=== PATIENT | female | born 1940 | race Caucasian/White ===

== ENCOUNTER 2024-10-29 17:45 | Day surgery (SDC) | payer MEDICARE, OTHER, SELFPAY ==
[2024-10-29] VITALS (9 sets, daily range): BP systolic 117–155; BP diastolic 34–88; PULSE 70–115; RESP 16–18; TEMP 36.3–37.9; O2SAT 92–100; BMI 30.5
--- OUTSIDE RECORDS SUMMARY | 2024-10-29 17:47 | XMS_ITS | Clinical Summary ---
Author Organization [facility] Address [address] [place] [id number] Care Team Providers Care Vehicle Body Builder Name Role Phone CindyorenChrista Jen PETERSON Primary Care Provider [phone]- [phone] Allergies Active Allergy Reactions Criticality Noted Date Comments Theobroma Oil Headache 03/06/2015 Erythromycin Rash 03/06/2015 Vitc-Dietary Combo. No.18 Headache 03/06/2015 Zinc Nausea Only 05/23/2024 Medications cholecalciferol (VITAMIN D) 1,000 unit capsule Take 2,000 units by mouth once daily. 0 10/12/2020 Active vit C/E/Zn/coppr/james tein/zeaxan (PRESERVISION AREDS-2 ORAL) Take by mouth. 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 01/08/2017 10/12/2020 Immunizations Immunization Administration Dates Next Due COVID-19 VACCINE SPIKEVAX (M ODERNA 50MCG/0.5ML) 12YO+ PFS 05/23/2024 COVID-19 vaccine (SyCara LocalBio NTech 30mcg/0.3mL) 12YO+ BIVALENT PF, MDV 03/24/2023 COVID-19 vaccine ([employer]-Bio NTech 30mcg/0.3mL) PF, MDV 10/03/2020,09/12/2020 Influenza, High-dose Inactivated 05/22/2015 Influenza, High-dose Quadriv alent Inactivated 05/31/2020 Influenza, Inactivated IIV3 (Age 65+ Years) Preserv Free 05/23/2024,07/13/2019,04/26/2018 Pneumococcal Poly,23-Valent (Pneumovax) 04/26/20 18 Pneumococcal conj 13-Valent (Prevnar 13) 015 Tdap 11/02/2017 Family History Medical History Relation Name Comments Cancer-breast Maternal Grandmother Blood Disease Mother Hepatitis C Cancer-breast Mother Anesthesia Problem No Family History Relation Name Status Comments Maternal Grandmother Mother Social History Tobacco Use Types Packs/Day Years Used Date Smoking Tobacco: Former Cigarettes Smokeless Tobacco: Never Tobacco Cessation:Counseling Given: Yes Alcohol Use Standard Drinks/Week Comments No 1 (1 standard drink = 0.6 oz pur e alcohol) PHQ-2 Answer Date Recorded PHQ-2 TOTAL SCORE 0 05/23/2024 Social Connections Answer Date Recorded Do you often feel lonely or isolated from those around you? 0 05/23/2024 Financial Resource Strain Answer Date R ecorded Difficulty of Paying Living Expenses 3 05/23/2024 Difficulty of Paying Living Expenses Not on file 05/23/2024 Food Insecurity Answer Date Recorded Do you worry your food will run out before you are able to buy more? 1 05/23/2024 Transportation Needs Answer Date Record ed Does lack of transportation keep you from medica l appointments? 1 05/23/2024 Does lack of transportation keep you from work, meetings or getting things that you need? 1 05/23/2024 Housing Stability Answer Date Recorded What is your housing situation today? 1 05/23/2024 Utilities Answer Date Recorded Do you have trouble paying f or utilities (for example, heat, electricity, water, phone)? 1 05/23/2024 Comments No Sex and Gender Information Value Date Recorded Sex Assigned at Not on file Legal Sex Female 9:29 AM CDT Gender Identity Not on file Sexual Orientation Not on file Obstetrics History Last Filed Vital Signs Vital Sign Reading Time Taken Comments Blood Pressure 138/70 05/23/2024 3:01 PM CDT Pulse 67 05/23/2024 2:43 PM CDT Temperature 36.3 C (97.4 F) 05/31/2018 10:17 AM CDT Respiratory Rate - - Oxygen Saturation 98% 05/23/2024 2:43 PM CDT Inhaled Oxygen Concentration - - Weight 87.5 kg (193 lb) 05/23/2024 2:43 PM CDT Height 160 cm (5' 3) 05/23/2024 2:43 PM CDT Body Mass Index 34.19 05/23/2024 2:43 PM CDT Plan of Treatment Health Maintenance Due Date Last Done Comments Zoster (shingles) series for age 50+ (1 of 2) 1990 DEXA/DXA scan for age 65+ 2005 RSV vaccine for adults or (1 - 1-dose 75+ series) 2015 COVID-19 vaccine series ( season) 2024 05/23/2024, 03/24/2023, 10/03/2020, Additional history exists BMI (ht and wt on same day) for age 18+ 05/23/2025 05/23/2024, 03/24/2023, 10/12/2020, Additional history exists Depression screening for age 12+ 05/23/2025 05/23/2024, 03/24/2023, 10/15/2020, Additional history exists Medicare Wellness for age 65+ 05/24/2025, 03/24/2023, 10/12/2020, Additional history exists Tetanus booster 11/03/2027 11/02/2017 Tdap Completed 11/02/2017 Pneumococcal series for age 50+ Completed 8, 05/22/2015 Influenza Vaccine Completed 05/23/2024, , 04/26/2018, Additional history exists Insurance RUBI REDD [address] [place] [id number] MEDICARE PB ONLY STATE FARM MEDICARE PART A HB ONLY MEDICARE PART B HB ONLY Advance Directives Documents on File Type Date Recorded 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
--- NOTE | 2024-10-29 18:03 | ED_ITS ---
HPI - Abdominal Pain General Time Seen by Provider: 18:03 Date Seen: 10/29/24 Chief Complaint: Abdominal Pain Stated Complaint: Lower R abdominal pain Time Seen by Provider: 10/29/24 18:03 Source: patient, RN notes reviewed and old records reviewed Mode of arrival: ambulatory Limitations: no limitations History of Present Illness HPI narrative: Tiffany is a very pleasant 84-year-old female previously healthy not currently on any medications and a resident at [facility] ([facility]) who comes to the emergency room for evaluation of a possible appendicitis. Patient noted that she awoke at 0500 hours with right lower quadrant pain. The pain radiates superiorly into her right upper quadrant and has been associated with some vomiting. She has not had any fever chills dysuria or blood in her urine. She notes that she thought maybe she was constipated but has not been dealing with that lately nor has she had any diarrhea. She denies any falls or trauma. Movement does not seem to increase her pain. Related Data Previous Rx's ?Medication ?Instructions ?Recorded amoxicillin 875 mg-potassium 1 tab PO BID #14 tabs 10/29/24 clavulanate 125 mg tablet hydrocodone 5 mg-acetaminophen 325 1 tab PO Q6H PRN pain #20 tabs 10/29/24 mg tablet polyethylene glycol 3350 17 17 g PO DAILY #119 grams 10/29/24 gram/dose oral powder (Miralax) Allergies Allergy/AdvReac Type Severity Reaction Status Date / Time erythromycin base Allergy Intermediate Verified 10/29/24 17:56 chocolate AdvReac Intermediate Migraine Verified 10/30/24 00:44 Review of Systems Status of ROS Reports: 10 or more systems reviewed and unremarkable except as noted in History and below Const Denies: fever, chills or fatigue Eyes Denies: change in vision ENMT Denies: throat pain, neck pain or nasal congestion Cardio Denies: chest pain, swelling of feet/ankles, lightheadedness or shortness of breath with exertion Resp Denies: shortness of breath or cough GI Reports: abdominal pain, nausea and vomiting; Denies: diarrhea or constipation Denies: painful urination, urinary frequency, urinary urgency or blood in urine Musculo Denies: neck pain Integ/Breast Denies: rash Neuro Denies: headache or numbness in extremities Endo Denies: fatigue PFSH PFSH Surgical History (Updated 10/30/24 @ 09:42 by Katie Simpson MD) S/P laparoscopic appendectomy ?Z90.49 - Acquired absence of other specified parts of digestive tract (ICD- 10) History of bilateral hip replacements ?Z96.643 - Presence of artificial hip joint, bilateral (ICD-10) History of cataract surgery ?Z98.49 - Cataract extraction status, unspecified eye (ICD-10) Social History (Updated 10/29/24 @ 21:54 by Katie Simpson MD) Narrative: Patient lives by herself but is active and travels with her son who is recovery coach. Smoking Status: Never smoker Do you use any of these nicotine containing products: None How often do you have a drink containing alcohol: never How often do you have six or more drinks on one occasion: Never AUDIT-C Alcohol total score: 0 Non-prescribed substance use: denies use Exam Narrative: Exam Narrative: Alert and oriented. No acute distress. Dry lips. Face symmetrical. Mentation is normal. Heart with regular rate and rhythm and lungs are clear bilaterally. Abdomen shows right lower quadrant tenderness. Positive for pain with internal external rotation of the hip but negative straight leg raise. Seems to have more pain with palpation than rebound. Bowel sounds are decreased. No high pitched sounds however. No evidence of bulging in the groin to indicate hernia. Const: Vital Signs, click to edit/add: Vital Signs - 24 hr 10/30/24 03:00 10/30/24 04:00 10/30/24 05:00 Temperature 98.1 F 97.7 F 97.7 F Pulse Rate 87 85 86 Pulse Rate [Right Pulse Oximeter] Respiratory Rate 16 16 16 Blood Pressure 107/51 L 117/98 H 104/44 L Blood Pressure [Le ft Arm] Pulse Oximetry 93 94 93 Oxygen Delivery Me thod Nasal Cannula Room Air Room Air Oxygen Flow Rate 1 10/30/24 05:07 10/30/24 07:13 10/30/24 07:45 Temperature 98.1 F 98.1 F 99.2 F Pulse Rate 79 79 Pulse Rate [Right Pulse Oximeter] 82 Respiratory Rate 16 16 18 Blood Pressure 89/46 L 89/46 L Blood Pressure [Le ft Arm] 103/45 L Pulse Oximetry 93 93 90 Oxygen Delivery Me thod Room Air Room Air Room Air Oxygen Flow Rate 10/30/24 07:45 Temperature Pulse Rate Pulse Rate [Right Pulse Oximeter] Respiratory Rate 18 Blood Pressure Blood Pressure [Le ft Arm] Pulse Oximetry 90 Oxygen Delivery Me thod Room Air Oxygen Flow Rate Documenting provider has reviewed patient's vital signs: yes Course Course ED Course: Differential diagnosis includes but is not limited to constipation common appendicitis, diverticulitis, colitis, ureteral colic/kidney stone, UTI. Will place IV and draw labs to include CBC, comprehensive panel, CRP. Will obtain urinalysis. Will also get flat plate and upright of the belly to start with. Have also ordered Zofran Toradol and IV fluids. Reevaluation(s) Reevaluation #1: Abdominal flat plate and upright shows a large stool burden. However, Patient noted to have a significantly elevated white count [id number] and CRP is 3.0. Will proceed with abdominal CT to rule out evidence of appendicitis versus colitis or diverticulitis. Patient is feeling better after Toradol. She has also received fluids. Reevaluation #2: EKG and chest x-ray are ordered. Consultations Consultation #1: Specialty consult with our surgeon Dr. Yates. She was able to view the images and is now planning on appendectomy this evening. Vital Signs Vital signs: Initial Vital Signs Temperature 97.3 F L 10/29/24 17:47 Temperature Source Temporal Artery Scan 10/29/24 17:47 Pulse Rate 70 10/29/24 17:47 Respiratory Rate 18 10/29/24 17:47 Blood Pressure 155/77 H 10/29/24 17:47 Blood Pressure Mean 103 10/29/24 17:47 Blood Pressure Position Sitting 10/29/24 17:47 Pulse Oximetry 98 10/29/24 17:47 Oxygen Delivery Method Room Air 10/29/24 17:47 Vital Signs Temperature 97.3 F L 10/29/24 17:47 Pulse Rate 70 10/29/24 17:47 Respiratory Rate 18 10/29/24 17:47 Blood Pressure 155/77 H 10/29/24 17:47 Pulse Oximetry 98 10/29/24 17:47 Oxygen Delivery Method Room Air 10/29/24 17:47 Temperature 99.2 F 10/30/24 07:45 Pulse Rate 82 10/30/24 07:45 Respiratory Rate 18 10/30/24 07:45 Blood Pressure 103/45 L 10/30/24 07:45 Pulse Oximetry 90 10/30/24 07:45 Oxygen Delivery Method Room Air 10/30/24 07:45 Oxygen Flow Rate 1 10/30/24 03:00 Medications Administered Medications: Discontinued Medications Generic Name Dose Route Start Last Admin Trade Name Freq PRN Reason Stop Dose Admin Acetaminophen 650 mg 10/29/24 21:57 10/30/24 08:27 Acetaminophen 325 Mg Tablet PO 325 mg Q6H PRN Administration Pain Bupivacaine HCl 30 ml 10/29/24 22:45 10/29/24 22:45 Bupivacaine 0.25% 30 Ml INJECTION 10/29/24 22:46 10 ml ONCE ONE Administration Sodium Chloride 500 mls @ 500 mls/hr 10/29/24 18:17 10/29/24 19:45 0.9 % Sodium Chloride 500 Ml IV 10/29/24 19:16 Infused .Q1H ONE Infusion Lactated Ringer's 1,000 mls @ 75 mls/hr 10/29/24 22:00 10/30/24 03:32 Lactated Ringers 1000 Ml IV 75 mls/hr .[id number] GLADYS Administration Piperacillin Sod/Tazobactam 100 mls @ 200 mls/hr 10/29/24 22:34 10/29/24 22:15 Sod 3.375 gm/ Sodium Chloride IVPB 10/29/24 22:35 200 mls/hr ONCE ONE Administration Lactated Ringer's 1,000 mls @ 75 mls/hr 10/29/24 22:40 10/29/24 23:43 Lactated Ringers 1000 Ml IV 75 mls/hr .[id number] GLADYS Infusion Piperacillin Sod/Tazobactam 100 mls @ 200 mls/hr 10/30/24 04:00 10/30/24 04:18 Sod 3.375 gm/ Sodium Chloride IVPB Infused Q6H GLADYS Infusion Sodium Chloride 500 mls @ 500 mls/hr 10/30/24 06:35 10/30/24 06:46 0.9 % Sodium Chloride 500 Ml IV 10/30/24 07:34 500 mls/hr .Q1H ONE Administration Ketorolac Tromethamine 15 mg 10/29/24 18:17 10/29/24 18:42 Ketorolac 15 Mg/Ml Inj IVP 10/29/24 18:18 15 mg ONCE ONE Administration Lidocaine/Epinephrine 20 ml 10/29/24 22:45 10/29/24 22:45 Lidocaine 1%-Epi 1:100,000 INFILTRATI 10/29/24 22:46 10 ml ONCE ONE Administration Ondansetron HCl 4 mg 10/29/24 18:17 10/29/24 18:41 Ondansetron 2 Mg/Ml Inj IVP 10/29/24 18:18 4 mg ONCE ONE Administration Polyethylene Glycol 17 gm 10/30/24 09:00 10/30/24 08:28 Polyethylene Glycol 3350 17 Gm Pack PO Not Given DAILY GLADYS MDM - Abdominal Pain MDM Narrative Medical decision making narrative: 1. Acute appendicitis-patient noted to have white count elevated at 18,000 with a CRP of 3.0. Flat plate and upright did show increased stool burden but patient underwent CT secondary to laboratory findings and it is noted that she has a acute uncomplicated appendicitis. Surgeon was consulted and they will be doing appendectomy this evening. 2. Abdominal pain-patient noted to be improved after Toradol and Zofran. IV fluid bolus 500 mL given. 3. Disposition-patient has a reassuring EKG with sinus rhythm and no acute findings, chest x-ray without any acute infiltrates. Patient has not been ill of late and has not had a fever. She denies having a smoking history or any recent illness. She is not currently on any medications. Medical Records Attestation: I reviewed the patient's medical records. Lab Data Attestation: I reviewed the patient's lab results. Labs: Lab Results 10/29/24 10/29/24 Range/Units 18:00 19:52 WBC 18.26 H (4.50-11.00) K/uL RBC 4.67 (4.00-5.20) m/uL Hgb 13.5 (12.0-16.0) gm/dL Hct 41.2 (33.0-51.0) % MCV 88 (80-100) fL MCH 29 (26-34) pg MCHC 33 (32-36) gm/dL RDW Coeff of Syed 15.1 (11.5-15.5) % Plt Count 252 (140-440) K/uL Neut % (Auto) 89.9 H (42.0-72.0) % Lymph % (Auto) 3.5 L (20-44) % Garza % (Auto) 5.4 (0.0-11.0) % Eos % (Auto) 0.0 (0.0-7.0) % Baso % (Auto) 0.1 (0.0-3.0) % Neut # (Auto) 16.40 H (1.7-7.0) K/uL Lymph # (Auto) 0.60 L (0.90-2.90) K/uL Garza # (Auto) 1.00 H (0.00-0.90) K/UL Eos # (Auto) 0.00 (0.00-0.50) K/uL Baso # (Auto) 0.00 (0.00-0.30) K/uL Abs Immat Gran (auto) 0.20 (0.00-0.30) K/uL Imm/Tot Granulo (auto) 1.1 % Sodium 138 (135-149) mmol/L Potassium 4.1 (3.6-5.1) mmol/L Chloride 104 (96-114) mmol/L Carbon Dioxide 23 (20-32) mmol/L Anion Gap 11 (7-15) mEq/L BUN 14 (7-30) mg/dL Creatinine 0.7 (0.5-1.5) mg/dL Estimated Creat Clear 34.64 Estimated GFR 85 ml/min Glucose 163 H (60-115) mg/dL Calcium 10.4 (8.4-10.6) mg/dL Total Bilirubin 0.7 (0.1-1.5) mg/dL AST 30 (12-35) U/L ALT 23 (4-35) U/L Alkaline Phosphatase 96 (40-150) U/L C-Reactive Protein 3.0 H (0.5-1.0) mg/dL Total Protein 7.5 (6.0-8.3) g/dL Albumin 4.4 (3.3-5.0) g/dL Urine Color Yellow (Yellow) Urine Appearance Clear (Clear) Urine pH 6.5 (5.0-8.5) Ur Specific [place] 1.015 (1.000-1.030) Urine Protein Negative (Negative) Urine Glucose (UA) Trace A (Negative) Urine Ketones Negative (Negative) Urine Blood Negative (Negative) Urine Nitrite Negative (Negative) Urine Bilirubin Negative (Negative) Urine Urobilinogen 0.2 (0.2-1.0) Ur Leukocyte Esterase Negative (Negative) Urine RBC 0-2 (0-2) Urine WBC 0-2 (0-5) Ur Squamous Epith Cells Few (None-Few) Urine Bacteria Many A (None) Imaging Data Abdominal x-ray: Attestation: I have reviewed the pertinent imaging results. My impression: Large amount of stool noted. Radiologist's impression: Bowel: Nonobstructive bowel gas pattern. Large colonic stool burden. Other: No sign of free air. No sign of soft tissue mass. The lung bases are clear. Bilateral total hip arthroplasties. No acute osseous findings. Impression: No evidence of an acute intra-abdominal process. Large colon stool burden. CT scan - abdomen: Attestation: I have reviewed the pertinent imaging results. My impression: Suspicious for appendicitis Radiologist's impression: Subcentimeter hypoattenuating lesion in the left hepatic lobe, likely a benign cyst. Cholelithiasis/gallbladder sludge without CT evidence of acute cholecystitis. No biliary ductal dilatation. There are few tiny calcified granulomas in the spleen. The pancreas and bilateral adrenal glands are unremarkable. The kidneys are normal in size and perfused in a normal fashion. No suspicious enhancing renal masses or lesions. Mild bilateral hydronephrosis without obstructing stone or appreciable obstructing lesions, may be secondary to congenital. No renal calculi. Bladder is not well visualized secondary to beam hardening artifact. The visualized portions of the uterus are unremarkable. No suspicious adnexal lesions. Tiny hiatal hernia. No evidence of bowel obstruction. Moderate stool burden throughout the colon. The appendix is dilated to 1.3 centimeters with mural enhancement and moderate periappendiceal fat stranding. No free air, free fluid, or abscess. No abdominopelvic lymphadenopathy. The vasculature is unremarkable. Soft tissue/musculoskeletal: The soft tissues are without acute abnormality. No acute fracture or malalignment. There are some degenerative changes of the spine. Bilateral hip arthroplasties. Impression: Acute, uncomplicated appendicitis; recommend consultation with surgery. Please note that all CT scans at this facility use dose modulation, iterative reconstruction, and/or weight-based dosing when appropriate to reduce radiation dose to as low as reasonably achievable. Dictated by Andrae Martel MD @ 10/29/2024 8:45:31 PM ----- ADDENDUM ----- Report was received by Dr. Karie Joshi @ 8:47 pm on 10/29/2024. Chest x-ray: Attestation: I have reviewed the pertinent imaging results. ECG Data Attestation: I personally reviewed and interpreted this ECG as follows: ECG interpretation date: 10/29/24 Prior ECG tracings: not available for review Interpretation: By my read sinus rhythm with no acute ST or T-wave changes. Normal [place] and QT intervals as well. Discharge Plan Discharge Clinical Impression: Acute appendicitis Patient Disposition: XFER to OR Condition: Improved
--- NOTE | 2024-10-29 18:17 | CRLHL7_ITS ---
For Patients: As a result of the Century Cures Act, medical imaging exams and procedure reports are released immediately into your electronic medical record. You may view this report before your referring provider. If you have questions, please contact your health care provider. Indication: Abdomen pain. Technique: Abdomen 4 view. Comparison: None. Findings: Bowel: Nonobstructive bowel gas pattern. Large colonic stool burden. Other: No sign of free air. No sign of soft tissue mass. The lung bases are clear. Bilateral total hip arthroplasties. No acute osseous findings. Impression: No evidence of an acute intra-abdominal process. Large colon stool burden. Dictated by Enmanuel Ortega MD @ 10/29/2024 6:38:28 PM (Electronically Signed)
--- OUTSIDE RECORDS SUMMARY | 2024-10-29 18:28 | XMS_ITS | Clinical Summary ---
Author Organization [facility] Address [address] [place] [id number] Care Team Providers Care On Awake Counselor Name Role Phone CindyorenChrista Jen PETERSON Primary Care Provider +1- [phone] Allergies Active Allergy Reactions Criticality Noted Date [...] ODERNA 50MCG/0.5ML) 12YO+ PFS 05/23/2024 COVID-19 vaccine ([employer] NTech 30mcg/0.3mL) 12YO+ BIVALENT PF, MDV 03/24/2023 COVID-19 vaccine ([employer] NTech 30mcg/0.3mL) PF, MDV 10/03/2020,09/12/2020 Influenza, High-dose [...] 04/26/2018, Additional history exists Insurance RUBI REDD [address] [place] [id number] MEDICARE PB ONLY STATE FARM MEDICARE PART A HB ONLY MEDICARE PART B HB ONLY Advance Directives Documents on File Type Date Recorded 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
[2024-10-29] MEDS: ONDANSETRON 2 MG/ML inj 4 MG IVP (18:41)
[2024-10-29] MEDS: KETOROLAC 15 MG/ML inj IVP (18:42)
[2024-10-29] MEDS: 0.9 % SODIUM CHLORIDE 500 ML 500 ML IV (18:45)
[2024-10-29 18:56] LABS: Basophils Percent Auto 0.1 % (0.0-3.0); Hematocrit 41.2 % (33.0-51.0); Hemoglobin* 13.5 gm/dL (12.0-16.0); Immature Granulocytes Pct Auto 1.1 %; Lymphocytes Percent Auto 3.5 % (20-44); Mean Corpuscular HGB Conc 33 gm/dL (32-36); Mean Corpuscular Hemoglobin 29 pg (26-34); Mean Corpuscular Volume 88 fL (80-100); Monocytes Percent Auto 5.4 % (0.0-11.0); Neutrophils Percent Auto 89.9 % (42.0-72.0); Platelet Count* 252 K/uL (140-440); RDW Coefficient of Variation % 15.1 % (11.5-15.5); Red Blood Count 4.67 m/uL (4.00-5.20); White Blood Count* 18.26 K/uL (4.50-11.00)
[2024-10-29 19:09] LABS: Albumin* 4.4 g/dL (3.3-5.0); Chloride* 104 mmol/L (96-114); Sodium* 138 mmol/L (135-149)
[2024-10-29 19:10] LABS: Potassium* 4.1 mmol/L (3.6-5.1)
[2024-10-29 19:12] LABS: Anion Gap 11 mEq/L (7-15); Blood Urea Nitrogen* 14 mg/dL (7-30); Carbon Dioxide* 23 mmol/L (20-32); Creatinine* 0.7 mg/dL (0.5-1.5); Est. Creatinine Clearance* 34.64; Estimated Glomerular Filt Rate 85 ml/min
[2024-10-29 19:13] LABS: Alanine Aminotransferase* 23 U/L (4-35); Alkaline Phosphatase* 96 U/L (40-150); Aspartate Amino Transferase* 30 U/L (12-35); Bilirubin Total* 0.7 mg/dL (0.1-1.5); Calcium* 10.4 mg/dL (8.4-10.6); Glucose* 163 mg/dL (60-115); Total Protein* 7.5 g/dL (6.0-8.3)
[2024-10-29 19:51] LABS: Slide Review Reflex No
[2024-10-29 19:57] LABS: Appearance Urine Clear (Clear); Bilirubin Urine Negative (Negative); Blood Urine Negative (Negative); Color Urine Yellow (Yellow); Glucose Urine Trace (Negative); Ketones Urine Negative (Negative); Leukocyte Esterase Urine Negative (Negative); Nitrite Urine Negative (Negative); Protein Urine Negative (Negative); Specific Gravity Urine 1.015 (1.000-1.030); Urobilinogen Urine 0.2 (0.2-1.0); pH Urine 6.5 (5.0-8.5)
--- NOTE | 2024-10-29 20:05 | CRLHL7_ITS ---
For Patients: As a result of the Century Cures Act, medical imaging exams and procedure reports are released immediately into your electronic medical record. You may view this report before your referring provider. If you have questions, please contact your health care provider. Indication: Right lower quadrant pain with leukocytosis Technique: CT abdomen/pelvis with IV contrast, 85 mL Isovue 370. Comparison: None Findings: Lower thorax: Trace dependent and basilar atelectasis. Calcified granuloma in the left lower lobe. Abdomen/pelvis: Subcentimeter hypoattenuating lesion in the left hepatic lobe, likely a benign cyst. Cholelithiasis/gallbladder sludge without CT evidence of acute cholecystitis. No biliary ductal dilatation. There are few tiny calcified granulomas in the spleen. The pancreas and bilateral adrenal glands are unremarkable. The kidneys are normal in size and perfused in a normal fashion. No suspicious enhancing renal masses or lesions. Mild bilateral hydronephrosis without obstructing stone or appreciable obstructing lesions, may be secondary to congenital. No renal calculi. Bladder is not well visualized secondary to beam hardening artifact. The visualized portions of the uterus are unremarkable. No suspicious adnexal lesions. Tiny hiatal hernia. No evidence of bowel obstruction. Moderate stool burden throughout the colon. The appendix is dilated to 1.3 centimeters with mural enhancement and moderate periappendiceal fat stranding. No free air, free fluid, or abscess. No abdominopelvic lymphadenopathy. The vasculature is unremarkable. Soft tissue/musculoskeletal: The soft tissues are without acute abnormality. No acute fracture or malalignment. There are some degenerative changes of the spine. Bilateral hip arthroplasties. Impression: Acute, uncomplicated appendicitis; recommend consultation with surgery. Please note that all CT scans at this facility use dose modulation, iterative reconstruction, and/or weight-based dosing when appropriate to reduce radiation dose to as low as reasonably achievable. Dictated by Andrae Martel MD @ 10/29/2024 8:45:31 PM (Electronically Signed)
[2024-10-29 20:10] LABS: Bacteria Urine Many; RBC Urine 0-2 (0-2); Squamous Epithelial Cell Urine Few (None-Few); WBC Urine 0-2 (0-5)
--- NOTE | 2024-10-29 20:50 | CRLHL7_ITS ---
For Patients: As a result of the Century Cures Act, medical imaging exams and procedure reports are released immediately into your electronic medical record. You may view this report before your referring provider. If you have questions, please contact your health care provider. Indication: Weakness. Technique: Chest 1 view. Comparison: None. Findings/Impression: The heart is not abnormally enlarged. The trachea is midline. Normal mediastinal contours. No confluent airspace opacity. No pleural effusion or pneumothorax. No acute osseous abnormality. Dictated by Lb Alvarez MD @ 10/29/2024 9:42:27 PM (Electronically Signed)
--- NOTE | 2024-10-29 21:52 | PM.GSHP ---
History of Present Illness History of Present Illness Date Seen: 10/29/24 Chief complaint: Lower R abdominal pain Narrative: Sandra Baires is a 84 year old female presented to emergency room with right lower quadrant abdominal pain. Patient states that her pain woke her up in the morning today. The pain persisted and was sometimes sharp with taking a deep breath. Patient called a triage line and was recommended to come to the emergency room. Patient had several episodes of dry heaving. She does not think she was passing gas. Her bowel movement was 2 days ago. She denies any fevers. I personally reviewed her workup in the emergency room. She was found to have an elevated WBC of 18. An abdominal CT was obtained that showed a dilated wall enhancing appendix with periappendiceal inflammation. There was an appendicolith in the tip of the appendix. This was concerning for acute appendicitis. There was no evidence of an abscess. Review of Systems Narrative: General: no fevers HENT: no problems swallowing CV: no shortness of breath Resp: no cough GI: No nausea, vomiting, abdominal pain : no dysuria, no increased urinary frequency, no hematuria Skin: no new rashes Musculoskeletal: no back pain Neuro: no muscle weakness Psyche: no depression, no anxiety PFSH PFSH Surgical History (Updated 10/29/24 @ 21:54 by Katie Simpson MD) History of bilateral hip replacements ?Z96.643 - Presence of artificial hip joint, bilateral (ICD-10) History of cataract surgery ?Z98.49 - Cataract extraction status, unspecified eye (ICD-10) Social History (Updated 10/29/24 @ 21:54 by Katie Simpson MD) Narrative: Patient lives by herself but is active and travels with her son who is head boys tennis coach. Smoking Status: Never smoker Do you use any of these nicotine containing products: None How often do you have a drink containing alcohol: never How often do you have six or more drinks on one occasion: Never AUDIT-C Alcohol total score: 0 Non-prescribed substance use: denies use Meds Home Medications and Allergies Home Medications ?Medication ?Instructions ?Recorded ?Confirmed ?Type No Known Home Medications 10/29/24 10/29/24 History Allergies Allergy/AdvReac Type Severity Reaction Status Date / Time erythromycin base Allergy Intermediate Verified 10/29/24 17:56 Exam Narrative: Exam Narrative: General appearance: Alert, cooperative, and in no distress Pulmonary: Chest symmetric, lungs clear bilaterally Cardiovascular Heart: Regular rate and rhythm, S1, S2, no murmurs/rubs/gallops Gastrointestinal Abdominal: soft, not distended, tender to palpation in the right lower quadrant with rebound tenderness, positive Rovsing sign. Skin: Normal skin color, texture, and turgor. No rashes or lesions. Psychiatric: Alert, cooperative, normal affect. Const: Vital Signs, click to edit/add: Vital Signs - 24 hr 10/29/24 17:47 10/29/24 20:53 Temperature 97.3 F L Pulse Rate [Pulse Oximeter] 70 92 Respiratory Rate 18 18 Blood Pressure [Ri ght Upper Arm] 155/77 H 146/88 H Pulse Oximetry 98 97 Oxygen Delivery Me thod Room Air Room Air Results Results Chest x-ray: image reviewed (Clear with no consolidation.) EKG: image reviewed (EKG with normal regular sinus rhythm, no ST elevations.) Progress Note:A&P Assessment and plan (1) Acute appendicitis: Status: Acute Plan 84-year-old female presents with right lower quadrant abdominal pain due to acute appendicitis. I discussed with the patient her laboratory and imaging findings. Patient has elevated WBC and CT scan showing dilated appendix with periappendiceal inflammation. Patient's EKG and chest x-ray are clear. I recommended to proceed with laparoscopic appendectomy. The procedure was discussed in detail. The risks associated procedure including infection, bleeding, injury to intra-abdominal organs, and the need for additional procedures were all discussed with the patient, and she agreed to proceed.
[2024-10-29] MEDS: LACTATED RINGERS 1000 ML 1,000 ML 75 ML IV (22:07)
[2024-10-29] MEDS: PIPERACILLIN/TAZOBACTAM 3.375 GM in 0.9 % SODIUM CHLORIDE Mini-bag 100 ML IVPB (22:15)
[2024-10-29] MEDS: LIDOCAINE 1%-EPI 1:100,000 20 ML INFILTRATI (22:45)
[2024-10-29] MEDS: BUPIVACAINE 0.25% 30 ML INJECTION (22:45)
--- NOTE | 2024-10-29 23:23 | PM.GSPRC ---
Operative Note Date of procedure: 10/29/24 Pre-op diagnosis: 1. Acute appendicitis. Post-op diagnosis: 1. Acute suppurative appendicitis. Type of Procedure: 1. Laparoscopic appendectomy. Indications: 84-year-old female presented to emergency room with right lower quadrant abdominal pain of less than 24 hours duration. The pain was persistent and patient had several episodes of dry heaving. She did not pass gas. Upon her workup in the emergency room she was found to have elevated WBC of 18. An abdominal CT was obtained that showed dilated will enhancing appendix with periappendiceal inflammation. There was no evidence of periappendiceal abscess. On clinical exam patient had tenderness to palpation in the right lower quadrant with rebound tenderness. Given patient's clinical history, her laboratory and imaging findings, and her physical exam, acute appendicitis was suspected, and laparoscopic appendectomy was recommended. The procedure was discussed in detail. The risks associated procedure including infection, bleeding, injury to intra-abdominal organs and the need for additional procedures were all discussed with the patient, and she agreed to proceed. Procedure Description: After discussing the risks and benefits of the procedure, the patient signed informed consent.? The operative site was marked and the patient was brought to the operating room and placed on the operating table in supine position.? Care was taken to pad the patient's pressure points.?? The patient was then intubated by anesthesia.?? The operative site was then prepped and draped in the usual sterile fashion.? A time-out was then performed. A 5-mm laparoscopy port was placed in the left upper quadrant guided by a 5-mm laparoscope placed into a translucent trochar. Passage through the layers of the abdominal wall was visualized with the laparoscope. A pneumoperitoneum was established. A 30-degree 5-mm laparoscope was advanced into the abdomen. The abdomen was briefly surveyed, and there was no evidence of diffuse peritonitis. A 12-mm port and a 5-mm port were placed in the left low quadrant and suprapubically, respectively, under direct visualization by laparoscope. Left upper quadrant entrance port was then examined intraabdominally by placing the camera through the left lower quadrant port and no intraabdominal injury was seen. Patient's transverse colon was adherent to the anterior abdominal wall and there were also omental adhesions noted in the left upper quadrant. The patient was placed in Trendelenburg position, allowing the abdominal contents to shift cephalad. The small bowel was moved toward the midline in the abdomen and this allowed for identification of the appendix. It appeared to be inflamed. Peritoneum overlying the appendix had evidence of peritonitis. The appendix was grasped and dissected from the peritoneum using Harmonic scalpel. The appendix was dissected from the terminal ileum and terminal ileal fat pad bluntly with the suction tip and with Harmonic scalpel. Care was taken not to injure the small intestine. The appendiceal mesentery was skeletonized with the Harmonic scalpel. Appendiceal artery and vein were identified and dissected circumferentially bluntly. The appendiceal artery was then clipped with 2 5 mm clips on the patient's side and divided with Harmonic scalpel on the specimen side. Venous bleeding was seen after the appendiceal artery was divided, and this was controlled with Harmonic scalpel. When the appendiceal base was clearly identified, a vascular load Endo-DAMION stapler was advanced through the 12-mm port into the abdomen and appendix was stapled off at its base. The appendix was then placed in an endoscopic retrieval bag and extracted from the abdomen through the 12-mm port. The abdomen was surveyed for hemostasis. And no bleeding was seen. Appendiceal staple line appeared to be intact with no bleeding. The 12-mm port was withdrawn and the fascial defect was closed with 0-0 Vicryl stitch using Donte Wilmar needle under direct visualization. The 5-mm port was removed under direct visualization. The left upper quadrant port was used to evacuate the pneumoperitoneum and then withdrawn. The skin incisions were closed with 4-0 monocryl. Steri-Strips were applied over the incisions. All counts were correct at the end of the case. The patient tolerated this procedure well and was transferred to PACU in stable condition. Findings: Acute suppurative appendicitis. No evidence of perforation. There was evidence of peritonitis. Anesthesia: GETA Surgeon: Katie Simpson MD Estimated blood loss (mL): 5 Specimen: Appendix Condition: stable Disposition: PACU
--- NOTE | 2024-10-29 23:33 | P.ANES_ITS ---
Anesthesia Charges Start Date/Time Anesthesia Start Date: 10/29/24 Anesthesia Start Time: 22:07 Stop Date/Time Anesthesia Stop Date: 10/29/24 Anesthesia Stop Time: 23:07 Summary Emergency: TELEGRAPH PLANT MAINTAINER Coding CPT Codes CPT Codes: ANESTH SURG LOWER ABDOMEN - 14461 ([id number]) QZ - TELEGRAPH PLANT MAINTAINER SVC W/O AIR POLLUTION ENGINEER BY , P2 - PATIENT W/MILD SYST DISEASE Additional Codes: Summary - Emergency: TELEGRAPH PLANT MAINTAINER ([id number])
--- NOTE | 2024-10-29 23:33 | W.ANESCHARGE ---
Anesthesia Charges Start Date/Time Anesthesia Start Date: 10/29/24 Anesthesia Start Time: 22:07 Stop Date/Time Anesthesia Stop Date: 10/29/24 Anesthesia Stop Time: 23:07 Summary Emergency: CONTRACT CONSULTANT Coding CPT Codes CPT Codes: ANESTH SURG LOWER ABDOMEN - 52313 ([id number]) QZ - CONTRACT CONSULTANT SVC W/O BURNISHING MACHINE OPERATOR BY , P2 - PATIENT W/MILD SYST DISEASE Additional Codes: Summary - Emergency: CONTRACT CONSULTANT ([id number])
--- NOTE | 2024-10-29 23:37 | SUR.PHASEI ---
Patient came to PACU awake, denies pain or nausea, stated she was warm enough. Warm blankets given.
--- NOTE | 2024-10-29 23:52 | SUR.PHASEI ---
Patient meets anesthesia discharge criteria from PACU
--- NOTE | 2024-10-29 23:55 | SUR.PHASEI ---
Patient oxygen remained in upper 90s off oxygen
[2024-10-30] VITALS (13 sets, daily range): BP systolic 89–128; BP diastolic 44–98; PULSE 79–99; RESP 16–18; TEMP 36.5–37.3; O2SAT 90–94
[2024-10-30] MEDS: LACTATED RINGERS 1000 ML 1,000 ML 75 ML IV (03:32)
[2024-10-30] MEDS: PIPERACILLIN/TAZOBACTAM 3.375 GM in 0.9 % SODIUM CHLORIDE Mini-bag 100 ML IVPB (03:36)
--- NOTE | 2024-10-30 05:22 | PC.NURSE ---
Addendum entered by Eliza Aguilar 10/30/24 07:19: Pt's 0500 and 0600 bp were trending low, pt denied lightheadedness and dizziness, updated MD Simpson, orders given for 500 ml bolus, pt currently tolerating well. Original Note: Pt alert and oriented x3. Afebrile. Pt denies pain, chest pain, SOB, lightheadedness or dizziness, and N/V. Pt reports passing gas. Pt is up SBA with IV pole, voiding, and tolerating a regular diet.
[2024-10-30] MEDS: 0.9 % SODIUM CHLORIDE 500 ML 500 ML IV (06:46)
[2024-10-30] MEDS: ACETAMINOPHEN 325 MG TABLET 650 MG PO (08:27)
--- NOTE | 2024-10-30 09:42 | PM.DS1 ---
DS: Providers Provider Date Seen: 10/30/24 Primary care physician: Christa Mcbride DO Attending Physician on discharge: Katie Simpson MD DS: Diagnosis Discharge Diagnosis (1) S/P laparoscopic appendectomy: Status: Acute DS: Summary Hospital Course Hospital Course: 84-year-old female was admitted to the hospital after she underwent laparoscopic appendectomy. Patient did well. Her blood pressure postoperatively was low normal and she received 1 500 mL bolus for MAP of 60. Patient ambulated with no dizziness. Her pain was controlled with pain medications. She passed small amount of gas. She tolerated regular diet for breakfast with no vomiting. Time Spent with Patient Time attestation: Total time spent providing and/or coordinating discharge services: Exam Const: Vital Signs, click to edit/add: Vital Signs - 24 hr 10/29/24 17:47 10/29/24 20:53 10/29/24 23:25 Temperature 97.3 F L 99.2 F Pulse Rate 115 H Pulse Rate [Pulse Oximeter] 70 92 Pulse Rate [Right Pulse Oximeter] Respiratory Rate 18 18 16 Blood Pressure 117/78 Blood Pressure [Le ft Arm] Blood Pressure [Ri ght Upper Arm] 155/77 H 146/88 H Pulse Oximetry 98 97 93 Oxygen Delivery Me thod Room Air Room Air Nasal Cannula Oxygen Flow Rate 2 10/29/24 23:30 10/29/24 23:35 10/29/24 23:40 Temperature Pulse Rate 107 H 106 H 103 H Pulse Rate [Pulse Oximeter] Pulse Rate [Right Pulse Oximeter] Respiratory Rate 16 16 16 Blood Pressure 118/34 L 133/61 132/59 L Blood Pressure [Le ft Arm] Blood Pressure [Ri ght Upper Arm] Pulse Oximetry 100 96 96 Oxygen Delivery Me thod Nasal Cannula Nasal Cannula Oxygen Flow Rate 2 2 10/29/24 23:45 10/29/24 23:50 10/29/24 23:53 Temperature 100.2 F H Pulse Rate 102 H 101 H 103 H Pulse Rate [Pulse Oximeter] Pulse Rate [Right Pulse Oximeter] Respiratory Rate 16 18 18 Blood Pressure 128/87 123/63 123/66 Blood Pressure [Le ft Arm] Blood Pressure [Ri ght Upper Arm] Pulse Oximetry 100 95 92 Oxygen Delivery Me thod Room Air Room Air Oxygen Flow Rate 10/30/24 00:00 10/30/24 00:15 10/30/24 00:30 Temperature 98.3 F 98.5 F 98.9 F Pulse Rate 98 99 96 Pulse Rate [Pulse Oximeter] Pulse Rate [Right Pulse Oximeter] Respiratory Rate 16 16 16 Blood Pressure 128/57 L 128/57 L 118/54 L Blood Pressure [Le ft Arm] Blood Pressure [Ri ght Upper Arm] Pulse Oximetry 90 90 90 Oxygen Delivery Me thod Room Air Room Air Nasal Cannula Oxygen Flow Rate 0.5 10/30/24 00:45 10/30/24 01:00 10/30/24 01:30 Temperature 98.8 F 98.6 F 98.6 F Pulse Rate 92 90 88 Pulse Rate [Pulse Oximeter] Pulse Rate [Right Pulse Oximeter] Respiratory Rate 18 18 16 Blood Pressure 117/57 L 122/60 113/55 L Blood Pressure [Le ft Arm] Blood Pressure [Ri ght Upper Arm] Pulse Oximetry 90 92 90 Oxygen Delivery Me thod Nasal Cannula Room Air Nasal Cannula Oxygen Flow Rate 0.5 1 10/30/24 02:00 10/30/24 03:00 10/30/24 04:00 Temperature 98.5 F 98.1 F 97.7 F Pulse Rate 89 87 85 Pulse Rate [Pulse Oximeter] Pulse Rate [Right Pulse Oximeter] Respiratory Rate 16 16 16 Blood Pressure 102/53 L 107/51 L 117/98 H Blood Pressure [Le ft Arm] Blood Pressure [Ri ght Upper Arm] Pulse Oximetry 91 93 94 Oxygen Delivery Me thod Nasal Cannula Nasal Cannula Room Air Oxygen Flow Rate 1 1 10/30/24 05:00 10/30/24 05:07 10/30/24 07:13 Temperature 97.7 F 98.1 F 98.1 F Pulse Rate 86 79 79 Pulse Rate [Pulse Oximeter] Pulse Rate [Right Pulse Oximeter] Respiratory Rate 16 16 16 Blood Pressure 104/44 L 89/46 L 89/46 L Blood Pressure [Le ft Arm] Blood Pressure [Ri ght Upper Arm] Pulse Oximetry 93 93 93 Oxygen Delivery Me thod Room Air Room Air Room Air Oxygen Flow Rate 10/30/24 07:45 10/30/24 07:45 Temperature 99.2 F Pulse Rate Pulse Rate [Pulse Oximeter] Pulse Rate [Right Pulse Oximeter] 82 Respiratory Rate 18 18 Blood Pressure Blood Pressure [Le ft Arm] 103/45 L Blood Pressure [Ri ght Upper Arm] Pulse Oximetry 90 90 Oxygen Delivery Me thod Room Air Room Air Oxygen Flow Rate DS: Data Data Completed and Pending Labs on day of discharge: Labs from last 24 hours 10/29/24 10/29/24 19:52 18:00 WBC 18.26 H RBC 4.67 Hgb 13.5 Hct 41.2 MCV 88 MCH 29 MCHC 33 RDW Coeff of Syed 15.1 Plt Count 252 Neut % (Auto) 89.9 H Lymph % (Auto) 3.5 L [place] % (Auto) 5.4 Eos % (Auto) 0.0 Baso % (Auto) 0.1 Neut # (Auto) 16.40 H Lymph # (Auto) 0.60 L [place] # (Auto) 1.00 H Eos # (Auto) 0.00 Baso # (Auto) 0.00 Abs Immat Gran (auto) 0.20 Imm/Tot Granulo (auto) 1.1 Sodium 138 Potassium 4.1 Chloride 104 Carbon Dioxide 23 Anion Gap 11 BUN 14 Creatinine 0.7 Estimated Creat Clear 34.64 Estimated GFR 85 Glucose 163 H Calcium 10.4 Total Bilirubin 0.7 AST 30 ALT 23 Alkaline Phosphatase 96 C-Reactive Protein 3.0 H Total Protein 7.5 Albumin 4.4 Urine Color Yellow Urine Appearance Clear Urine pH 6.5 Ur Specific [place] 1.015 Urine Protein Negative Urine Glucose (UA) Trace A Urine Ketones Negative Urine Blood Negative Urine Nitrite Negative Urine Bilirubin Negative Urine Urobilinogen 0.2 Ur Leukocyte Esterase Negative Urine RBC 0-2 Urine WBC 0-2 Ur Squamous Epith Cells Few Urine Bacteria Many A Preliminary micro results at discharge 10/29/24 19:52 Urine Culture - Preliminary Urine,Clean Catch Culture in Progress Discharge Plan Discharge Disposition: Home w/ Parent or Adult Discharging Surgeon: Katie Simpson Follow-Up Appointment: 2 weeks [facility] Prescriptions: New hydrocodone-acetaminophen 5-325 mg tablet 1 tab PO Q6H PRN (Reason: pain) Qty: 20 0RF amoxicillin-pot clavulanate 875-125 mg tablet 1 tab PO BID Qty: 14 0RF polyethylene glycol 3350 [Miralax] 17 gram/dose powder 17 g PO DAILY Qty: 119 0RF Activity Level: No strenuous activity Activity Detail: No strenuous activity or lifting more than 15-20 lbs for 4-6 weeks. Take laxative such as MiraLax or senna daily for the first 7-10 days after surgery to prevent constipation. Discharge Diet: Regular Patient Instructions: General Anesthesia (DC), Laparoscopic Appendectomy (DC), Post-Operative Instructions: Appendectomy Follow-up: Katie Simpson MD [Staff Physician] - Discharge Orders: Discharge Order (Routine); Ordered 10/30/24 Ordered By: Katie Simpson
--- NOTE | 2024-10-30 11:27 | PC.NURSE ---
Discharge: The patient discharged home with all discharge instructions and follow up appointment instructions after lap choly. All questions were answered and S/S were reviewed with the patient to follow up on or come in for. All belongings were sent home with the patient Carolyn
== END 2024-10-30 10:58 | disposition home or self-care (01) ==
LOC: ED 21:19 → OR 21:43 → MEDSURG 10-30 00:13
PROVIDERS: Emergency Provider Family Medicine; PCP Family Medicine; Visit Provider Surgery
PROC: 0DTJ4ZZ Resection of Appendix, Percutaneous Endoscopic Approach (ICD-10-PCS; CPT 44970; principal; 2024-10-29 21:45)
DX: K35.33 Acute appendicitis with perforation, localized peritonitis, and gangrene, with abscess (principal); R10.31 Right lower quadrant pain
CPT/HCPCS: 44970; 00840; 36415; 71045; 74019; 74177; 80053; 81001; 85025; 86140; 87086; 88304; 93005; 99140; 99284; 99285; A9270; J0330; J0665; J1885; J2371; J2405; J2543; J2704; J3010; J3490; J7030; J7120; Q9967

== ENCOUNTER 2025-03-07 18:51 | Outpatient (CLI) | payer MEDICARE, OTHER, SELFPAY | END 2025-03-07 18:52 | disposition home or self-care (01) | LOC: AMB 03-13 16:05 | PROVIDERS: PCP Family Medicine; Visit Provider Family Medicine | DX: R10.9 Unspecified abdominal pain (principal) | CPT/HCPCS: A0425; A0427 ==

== ENCOUNTER 2025-03-07 19:02 | Emergency (ER) | payer MEDICARE, OTHER, SELFPAY ==
[2025-03-07 19:04] VITALS: BP 132/63; PULSE 68; RESP 18; TEMP 36.1; O2SAT 98; BMI 31.0
--- OUTSIDE RECORDS SUMMARY | 2025-03-07 19:04 | XMS_ITS | Clinical Summary ---
Author Organization [facility] Address [address] [place] [id number] Care Team Providers Care Rubber Chemist Name Role Phone CindyorenChrista Jen PETERSON Primary Care Provider [phone] Allergies Active Allergy Reactions Criticality Noted Date [...] ODERNA 50MCG/0.5ML) 12YO+ PFS 05/23/2024 COVID-19 vaccine (PluralityBio NTech 30mcg/0.3mL) 12YO+ BIVALENT PF, MDV 03/24/2023 COVID-19 vaccine (myAchy-Bio NTech 30mcg/0.3mL) PF, MDV 10/03/2020,09/12/2020 Influenza, High-dose [...] 2024 05/23/2024, 03/24/2023, 10/03/2020, Additional history exists Influenza Vaccine (#1) 2025 , 07/13/2019, 04/26/2018, Additional history exists BMI (ht and wt on same day) for age 18+ 05/23/2025 05/23/2024, 03/24/2023, 10/12/2020, Additional history exists Depression screening for age 12+ 05/23/2025 05/23/2024, 03/24/2023, 10/15/2020, Additional history exists Medicare Wellness for age 65+ 05/24/2025 05/23/2024, 03/24/2023, 10/12/2020, Additional history exists Tetanus booster 11/03/2027 11/02/2017 Pneumococcal series for age 50+ Completed 04/26/2018, 05/22/2015 Hepatitis B series for 19+ Aged Out N o longer eligible based on patient's age to complete this topic Insurance MEDICARE [place] ONLY [facility] MEDICARE PART A HB ONLY MEDICARE PART B HB ONLY Advance Directives Documents on File Type Date Recorded 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
--- NOTE | 2025-03-07 19:34 | ED.ABDPAIN ---
HPI - Abdominal Pain General Chief Complaint: Abdominal Pain Stated Complaint: stomach pain Time Seen by Provider: 03/07/25 19:06 History of Present Illness HPI narrative: This 84-year-old female comes in with abdominal pain and states that she was trying to have a bowel movement but was unable to do so and feels like there is something stuck in her rectum. She does not report any fevers. She thinks that she might have had some food poisoning recently but does not report any diarrhea. She did vomit 1 time. Related Data Previous Rx's ?Medication ?Instructions ?Recorded amoxicillin 875 mg-potassium 1 tab PO BID #14 tabs 10/29/24 clavulanate 125 mg tablet hydrocodone 5 mg-acetaminophen 325 1 tab PO Q6H PRN pain #20 tabs 10/29/24 mg tablet polyethylene glycol 3350 17 17 g PO DAILY #119 grams 10/29/24 gram/dose oral powder (Miralax) Allergies Allergy/AdvReac Type Severity Reaction Status Date / Time erythromycin base Allergy Intermediate Verified 10/29/24 17:56 chocolate AdvReac Intermediate Migraine Verified 10/30/24 00:44 Review of Systems Status of ROS Reports: 10 or more systems reviewed and unremarkable except as noted in History and below Narrative Constitutional: No fevers, no weight gain or loss. Eyes: No discharge. No vision changes. HENT: No congestion, no sore throat, no ear pain. Cardiovascular: No chest pain, no palpitations. Respiratory: No shortness of breath, no wheezes, no cough. Gastrointestinal: No diarrhea. Lower abdominal pain and 1 vomiting episode. Genitourinary: No dysuria, no hematuria. Musculoskeletal: Normal range of motion. Skin: No rashes, no pruritis. Neurological: No dizziness, weakness, sensory change, speech change. Endo/Heme/Allergies: No bruising or bleeding. No polydipsia. Pysch: no suicidality, no anxiety, no insomnia. All other systems reviewed and are negative. [facility] Surgical History (Updated 10/30/24 @ 09:42 by Katie Simpson MD) S/P laparoscopic appendectomy ?Z90.49 - Acquired absence of other specified parts of digestive tract (ICD-10) History of bilateral hip replacements ?Z96.643 - Presence of artificial hip joint, bilateral (ICD-10) History of cataract surgery ?Z98.49 - Cataract extraction status, unspecified eye (ICD-10) Social History (Updated 10/29/24 @ 21:54 by Katie Simpson MD) Narrative: Patient lives by herself but is active and travels with her son who is instructional coach. Smoking Status: Never smoker Do you use any of these nicotine containing products: None How often do you have a drink containing alcohol: never How often do you have six or more drinks on one occasion: Never AUDIT-C Alcohol total score: 0 Non-prescribed substance use: denies use service: No Exam Narrative: Exam Narrative: Constitutional: Well-developed, well-nourished, no acute distress. HEENT: Normocephalic, atraumatic. Neck: Normal range of motion. Nontender. Supple. Heart: Regular. No murmurs. Normal rate. Intact distal pulses. Lungs: Clear to auscultation. No chest discomfort. No wheezes, rhonchi, or rales. Abdomen: Diffuse tenderness in the lower abdomen. No rebound tenderness. Large hard stool at the rectum. Back: No midline tenderness. Normal range of motion. Extremities: Normal range of motion. No injury. Skin: Intact. No rash. Warm. No erythema or pallor. Neurologic: No altered sensation. No weakness. Alert and oriented. Psychiatric: No suicidality. No anxiety or depression. No insomnia. Nursing notes and vitals signs are reviewed. Const: Vital Signs, click to edit/add: Vital Signs - 24 hr 03/07/25 19:04 Temperature 96.9 F L Pulse Rate [Right Pulse Oximeter] 68 Respiratory Rate 18 Blood Pressure [Ri ght Upper Arm] 132/63 Pulse Oximetry 98 Oxygen Delivery Me thod Room Air Course Vital Signs Vital signs: Initial Vital Signs Temperature 96.9 F L 03/07/25 19:04 Temperature Source Temporal Artery Scan 03/07/25 19:04 Pulse Rate 68 03/07/25 19:04 Pulse Rhythm Regular 03/07/25 19:04 Respiratory Rate 18 03/07/25 19:04 Blood Pressure 132/63 03/07/25 19:04 Blood Pressure Mean 86 03/07/25 19:04 Blood Pressure Position Standing 03/07/25 19:04 Pulse Oximetry 98 03/07/25 19:04 Oxygen Delivery Method Room Air 03/07/25 19:04 Vital Signs Temperature 96.9 F L 03/07/25 19:04 Pulse Rate 68 03/07/25 19:04 Respiratory Rate 18 03/07/25 19:04 Blood Pressure 132/63 03/07/25 19:04 Pulse Oximetry 98 03/07/25 19:04 Oxygen Delivery Method Room Air 03/07/25 19:04 Temperature 96.9 F L 03/07/25 19:04 Pulse Rate 68 03/07/25 19:04 Respiratory Rate 18 03/07/25 19:04 Blood Pressure 132/63 03/07/25 19:04 Pulse Oximetry 98 03/07/25 19:04 Oxygen Delivery Method Room Air 03/07/25 19:04 MDM - Abdominal Pain MDM Narrative Medical decision making narrative: This patient comes in with lower abdominal pain and a feeling of fullness in her rectum. On examination of her bottom she has large stool that is rather hard and firm sitting in the rectum but unable to be molded enough to come through the anus. I did manually disimpact the rectum. This was uncomfortable for her but tolerable. She then attempted to get further progress by attempting a bowel movement at the toilet. She was able to produce a large amount of stool in the toilet and is feeling much better. I did recommend that she use [id number] fiber additives to normalize her stools. She states she normally does not have a problem like this but is very grateful to have some relief. Discharge Plan Discharge Clinical Impression: Constipation, Fecal impaction in rectum Patient Disposition: Home, Self-Care Condition: Improved Additional Instructions: Take plenty of fluids. Recommended to use a fiber additive such as Metamucil, Citrucel, or Benefiber. Other [id number] treatments for managing constipation are all usable as needed and directed. Prescriptions: No Action hydrocodone-acetaminophen 5-325 mg tablet 1 tab PO Q6H PRN (Reason: pain) Qty: 20 0RF amoxicillin-pot clavulanate 875-125 mg tablet 1 tab PO BID Qty: 14 0RF polyethylene glycol 3350 [Miralax] 17 gram/dose powder 17 g PO DAILY Qty: 119 0RF Follow Up/Referrals: Christa Mcbride DO [Primary Care Provider, Family Practice] [facility] Inst[facility]
== END 2025-03-07 20:09 | disposition home or self-care (01) ==
LOC: ED 19:52
PROVIDERS: Emergency Provider Emergency Medicine Emergency Medical Services; PCP Family Medicine
DX: K59.00 Constipation, unspecified (principal)
CPT/HCPCS: 99283; 99284